=== PATIENT | female | born 1980 | race Caucasian/White ===

== ENCOUNTER 2020-12-10 13:08 | Emergency (ER) | payer SELFPAY ==
[2020-12-10] MEDS ORDERED: Metoprolol Tartrate 25 MG Tab PO STA (13:37)
--- NOTE | 2020-12-10 14:15 | EDM.PDOC ---
ED HPI GENERAL MEDICAL PROBLEM - General Chief Complaint: Chest Pain Stated Complaint: HIGH HEART RATE Time Seen by Provider: 12/10/20 13:35 Source of Information: Reports: Patient History Limitations: Reports: No Limitations - History of Present Illness INITIAL COMMENTS - FREE TEXT/NARRATIVE: Patient presented to the ED because of palpitations and chest pain. She apparently took a protein shake drink and didn't know that it contains significant amount of caffeine. She has a history of SVT and had an ablation 2 years ago. She is taking metoprolol succinate 25 mg po daily. She denies any nausea,vomiting, dyspnea but felt dizzy a while ago which has now resolved. Midsternal chest Pain Score (Numeric/FACES): 4 - Related Data Allergies Allergy/AdvReac Type Severity Reaction Status Date / Time codeine Allergy Airway Verified 12/10/20 13:29 Tightness erythromycin base Allergy Rash Verified 12/10/20 13:29 Penicillins Allergy Rash Verified 12/10/20 13:29 Sulfa (Sulfonamide Allergy Rash Verified 12/10/20 13:29 Antibiotics) Home Meds: Home Meds Metoprolol Succinate 50 mg PO DAILY #39 tab.er.24h 12/10/20 [Rx] Metoprolol Succinate [Toprol XL] 25 mg PO DAILY 12/10/20 [History] Past Medical History Cardiovascular History: Reports: Arrhythmia, Hypertension, Other (See Below) Other Cardiovascular History: hx SVT, hx pre-HTN Gastrointestinal History: Reports: None Genitourinary History: Reports: None [employer]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: Musculoskeletal History: Reports: Arthritis, Fracture Other Musculoskeletal History: hx fx tib fib fx L leg, R ankle fx Endocrine/Metabolic History: Reports: Obesity/BMI 30+, Other (See Below) Other Endocrine/Metabolic History: hx lymes disease - Infectious Disease History Infectious Disease History: Reports: None - Past Surgical History HEENT Surgical History: Reports: Naso-Sinus Surgery, Oral Surgery Cardiovascular Surgical History: Reports: Cardiac Ablation GI Surgical History: Reports: Cholecystectomy Female Surgical History: Reports: Section Other Female Surgeries/Procedures: CS x 2 Musculoskeletal Surgical History: Reports: ORIF Other Musculoskeletal Surgeries/Procedures:: R ankle Social & Family History - Family History Family Medical History: No Pertinent Family History - Tobacco Use Tobacco Use Status *Q: Former Tobacco User Used Tobacco, but Quit: Yes Month/Year Tobacco Last Used: 2013 - Caffeine Use Caffeine Use: Reports: None - Recreational Drug Use Recreational Drug Use: No ED ROS GENERAL - Review of Systems Review Of Systems: See Below Constitutional: Reports: No Symptoms HEENT: Reports: No Symptoms Respiratory: Reports: No Symptoms Cardiovascular: Reports: Chest Pain, Lightheadedness, Palpitations Endocrine: Reports: No Symptoms GI/Abdominal: Reports: No Symptoms : Reports: No Symptoms Musculoskeletal: Reports: No Symptoms Skin: Reports: No Symptoms Neurological: Reports: No Symptoms Psychiatric: Reports: No Symptoms ED EXAM, GENERAL - Physical Exam Exam: See Below Exam Limited By: No Limitations General Appearance: Alert, No Apparent Distress Eye Exam: Bilateral Eye: PERRL Ears: Normal External Exam, Normal Canal Nose: Normal Inspection, Normal Mucosa, No Blood Throat/Mouth: Normal Inspection, Normal Lips Head: Atraumatic, Normocephalic Neck: Normal Inspection, Supple, Non-Tender, Full Range of Motion Respiratory/Chest: No Respiratory Distress, Lungs Clear, Normal Breath Sounds Cardiovascular: Normal Peripheral Pulses, No Edema, No Gallop, No JVD, No Murmur, Tachycardia GI/Abdominal: Normal Bowel Sounds, Soft, Non-Tender, No Organomegaly, No Distention, No Abnormal Bruit, No Mass Back Exam: Normal Inspection, Full Range of Motion Extremities: Normal Inspection, Normal Range of Motion #1 Interpretation EKG Date: 12/10/20 Time: 13:18 Rhythm: NSR [place]: Normal P-Wave: Present QRS: Normal ST-T: Normal QT: Normal Comparison: NA - No Prior EKG (NSR) Course - Vital Signs Text/Narrative:: Labs/EKG result was reviewed and discussed with patient Metoprolol tartrate 25 mg PO x1 Last Recorded V/S: Last Vital Signs Temp 36.0 C L 12/10/20 13:30 Pulse 105 H 12/10/20 14:30 Resp 21 H 12/10/20 14:30 BP 149/91 H 12/10/20 14:30 Pulse Ox 96 12/10/20 14:30 - Orders/Labs/Meds Orders: Active Orders 24 hr Category Date Time Status EKG 12 Lead [EK] Routine Ther 12/10/20 13:38 Ordered Labs: Laboratory Tests 12/10/20 12/10/20 12/10/20 Range/Units 13:40 13:40 13:40 WBC 12.3 H (3.0-10.3) x10-3/uL RBC 4.65 (3.60-5.20) x10(6)uL Hgb 13.7 (11.4-15.5) g/dL Hct 40.6 (34.2-48.2) % MCV 87.2 (76.7-100.5) fL MCH 29.5 (23.9-33.9) pg MCHC 33.9 (31.9-34.8) g/dL RDW 13.2 (12.3-16.5) % Plt Count 401 (151-488) x10(3)uL MPV 8.2 (7.1-12.4) fL Neut % (Auto) 67.4 (30.8-76.2) % Lymph % (Auto) 24.9 (18.4-52.1) % Isabella % (Auto) 5.9 (4.4-15.7) % Eos % (Auto) 0.8 (0.6-8.1) % Baso % (Auto) 1.0 (0.2-1.5) % Neut # (Auto) 8.3 H (1.5-6.3) x10-3/uL Lymph # (Auto) 3.1 (1.0-4.4) x10-3/uL Isabella # (Auto) 0.7 (0.3-1.0) x10-3/uL Eos # (Auto) 0.1 (0.0-0.8) x10-3/uL Baso # (Auto) 0.1 (0.0-0.1) x10-3/uL Sodium 142 (135-145) mmol/L Potassium 3.8 (3.5-5.3) mmol/L Chloride 103 (100-110) mmol/L Carbon Dioxide 27 (21-32) mmol/L BUN 10 (7-18) mg/dL Creatinine 0.8 (0.55-1.02) mg/dL Est Cr Clr Drug Dosing 85.76 mL/min Estimated GFR (MDRD) > 60 (>60) BUN/Creatinine Ratio 12.5 (9-20) Glucose 107 (80-116) mg/dL Calcium 8.8 (8.6-10.2) mg/dL Total Bilirubin 0.9 (0.1-1.3) mg/dL AST 19 (5-25) IU/L ALT 31 (12-36) U/L Alkaline Phosphatase 55 L (56-112) IU/L Troponin I 4.5 (4.0-60.3) pg/mL Total Protein 7.5 (6.0-8.0) g/dL Albumin 3.9 (3.5-5.2) g/dL Globulin 3.6 g/dL Albumin/Globulin Ratio 1.1 Meds: Medications Discontinued Medications Generic Name Dose Route Start Last Admin Trade Name Freq PRN Reason Stop Dose Admin Metoprolol Tartrate 25 mg 12/10/20 13:37 12/10/20 13:50 Metoprolol Tartrate 25 Mg Tab PO 12/10/20 13:38 25 mg NOW STA Administration Departure - Departure Time of Disposition: 14:30 Disposition: Home, Self-Care 01 Condition: Good Clinical Impression: Palpitations, Chest pain Prescriptions: Metoprolol Succinate 50 mg PO DAILY #39 tab.er.24h Instructions: Nonspecific Chest Pain, Adult, [id number], Palpitations, [id number] Referrals: Miguel Florian DO [Primary Care Provider] - Forms: ED Department Discharge Additional Instructions: Please read discharge instructions on palpitations and chest pain Increase the dose of your metorprolol to 50 mg daily Record your heart rate and BP daily for 2 weeks and bring it to your next cardiology visit Sepsis Event Note (ED) - Evaluation Sepsis Screening Result: No Definite Risk - Focused Exam Vital Signs: Vital Signs Temp Pulse Pulse Resp BP BP Pulse Ox 12/10/20 14:30 105 H 21 H 149/91 H 96 12/10/20 14:15 98 21 H 140/118 H 100 12/10/20 14:00 93 20 136/94 H 100 12/10/20 13:50 91 126/78 12/10/20 13:45 95 18 126/78 99 12/10/20 13:30 36.0 C L 102 H 19 130/82 99 - My Orders Last 24 Hours: My Active Orders 12/10/20 13:38 EKG 12 Lead [EK] Routine - Assessment/Plan Last 24 Hours: My Active Orders 12/10/20 13:38 EKG 12 Lead [EK] Routine
== END 2020-12-10 14:40 | disposition home or self-care (01) ==
LOC: FB.ED 13:08
DX: R00.2 Palpitations (principal); R07.9 Chest pain, unspecified; I10 Essential (primary) hypertension; Z79.899 Other long term (current) drug therapy; Z87.891 Personal history of nicotine dependence; Z88.5 Allergy status to narcotic agent; Z88.1 Allergy status to other antibiotic agents; Z88.0 Allergy status to penicillin; Z88.2 Allergy status to sulfonamides
CPT/HCPCS: 36415; 80053; 84484; 85025; 93005; 99285; A9270

== ENCOUNTER 2021-07-05 18:15 | Emergency (ER) | payer SELFPAY ==
--- NOTE | 2021-07-05 19:11 | EDM.PDOC ---
ED HPI GENERAL MEDICAL PROBLEM - General Chief Complaint: General Stated Complaint: HIGHBLOOD PRESSURE Time Seen by Provider: 07/05/21 18:30 Source of Information: Reports: Patient - History of Present Illness INITIAL COMMENTS - FREE TEXT/NARRATIVE: 41-year-old lady came to the emergency department due to hypertension at home. She had been treated for hypertension as an outpatient but her doctor stopped metoprolol and losartan secondary to improved blood pressure control, weight loss. However, over the last several months she has gained a little bit of weight but also had a significant upper respiratory illness. She tested negative for Covid x2, her last negative test was 2 days ago. However, she has been tracking her blood pressure at home and has been very high. She denies chest pain, shortness of breath, fever, chills, cough, congestion, nausea, vomiting, diarrhea, change in bowel or bladder habits. He essentially came to the emergency department because she was concerned about her blood pressure and has no more blood pressure medication to take at home. Note that she did have 1 pill of metoprolol left at home. She took that pill and it seemed to help a little bit. - Related Data Allergies Allergy/AdvReac Type Severity Reaction Status Date / Time codeine Allergy Airway Verified 12/10/20 13:29 Tightness erythromycin base Allergy Rash Verified 12/10/20 13:29 Penicillins Allergy Rash Verified 12/10/20 13:29 Sulfa (Sulfonamide Allergy Rash Verified 12/10/20 13:29 Antibiotics) Home Meds: Home Meds Metoprolol Succinate 50 mg PO DAILY #39 tab.er.24h 12/10/20 [Rx] Metoprolol Succinate [Toprol XL] 25 mg PO DAILY 12/10/20 [History] Past Medical History Cardiovascular History: Reports: Arrhythmia, Hypertension, Other (See Below) Other Cardiovascular History: hx SVT, hx pre-HTN Gastrointestinal History: Reports: None Genitourinary History: Reports: None [employer] History: Reports: Other [employer] History: Musculoskeletal History: Reports: Arthritis, Fracture Other Musculoskeletal History: hx fx tib fib fx L leg, R ankle fx Endocrine/Metabolic History: Reports: Obesity/BMI 30+, Other (See Below) Other Endocrine/Metabolic History: hx lymes disease - Infectious Disease History Infectious Disease History: Reports: None - Past Surgical History HEENT Surgical History: Reports: Naso-Sinus Surgery, Oral Surgery Cardiovascular Surgical History: Reports: Cardiac Ablation GI Surgical History: Reports: Cholecystectomy Female Surgical History: Reports: Section Other Female Surgeries/Procedures: CS x 2 Musculoskeletal Surgical History: Reports: ORIF Other Musculoskeletal Surgeries/Procedures:: R ankle Social & Family History - Family History Family Medical History: No Pertinent Family History - Tobacco Use Tobacco Use Status *Q: Never Tobacco User - Caffeine Use Caffeine Use: Reports: None - Recreational Drug Use Recreational Drug Use: No ED ROS GENERAL - Review of Systems Review Of Systems: See Below Constitutional: Reports: No Symptoms HEENT: Reports: No Symptoms Respiratory: Reports: No Symptoms Cardiovascular: Reports: No Symptoms Endocrine: Reports: No Symptoms GI/Abdominal: Reports: No Symptoms : Reports: No Symptoms Musculoskeletal: Reports: No Symptoms Skin: Reports: No Symptoms Neurological: Reports: No Symptoms Psychiatric: Reports: No Symptoms Hematologic/Lymphatic: Reports: No Symptoms Immunologic: Reports: No Symptoms ED EXAM, GENERAL - Physical Exam Exam: See Below Exam Limited By: No Limitations General Appearance: Alert, WD/WN, No Apparent Distress Eye Exam: Bilateral Eye: EOMI Head: Atraumatic, Normocephalic Neck: Normal Inspection Respiratory/Chest: No Respiratory Distress, Lungs Clear Cardiovascular: Regular Rate, Rhythm, No Murmur Peripheral Pulses: 2+: Radial (L), Radial (R), Dorsalis Pedis (L), Dorsalis Pedis (R) GI/Abdominal: Normal Bowel Sounds, Soft, Non-Tender Back Exam: Normal Inspection Extremities: Normal Inspection Neurological: Alert, Oriented, Normal Cognition, Normal Gait Psychiatric: Normal Affect, Normal Mood Skin Exam: Warm, Dry, Intact Course - Vital Signs Text/Narrative:: Patient's blood pressure is within normal limits here in the emergency department patient is symptom-free at this time. Patient's metoprolol/home medication has been refilled through her [facility] chart. Patient will be discharged. Last Recorded V/S: Last Vital Signs Temp 36.4 C 07/05/21 18:20 Pulse 99 07/05/21 18:20 Resp 20 07/05/21 18:20 BP 150/94 H 07/05/21 18:20 Pulse Ox 98 07/05/21 18:20 Departure - Departure Time of Disposition: 19:09 Disposition: Home, Self-Care 01 Condition: Good Clinical Impression: Hypertension - Discharge Information *PRESCRIPTION DRUG MONITORING PROGRAM REVIEWED*: Not Applicable *COPY OF PRESCRIPTION DRUG MONITORING REPORT IN PATIENT AMILCAR: Not Applicable Instructions: Preventing Hypertension, Hypertension, Adult, [id number] Referrals: Miguel Florian DO [Primary Care Provider] - Additional Instructions: Patient's metoprolol has been refilled through her [facility] chart. Patient instructed to continue to take metoprolol as directed and to follow-up with her primary care physician. Sepsis Event Note (ED) - Evaluation Sepsis Screening Result: No Definite Risk - Focused Exam Vital Signs: Vital Signs Temp Pulse Resp BP Pulse Ox 07/05/21 18:20 36.4 C 99 20 150/94 H 98
== END 2021-07-05 19:42 | disposition home or self-care (01) ==
LOC: FB.ED 18:15
DX: I10 Essential (primary) hypertension (principal); E66.9 Obesity, unspecified; Z68.28 Body mass index [BMI] 28.0-28.9, adult; Z88.5 Allergy status to narcotic agent; Z88.0 Allergy status to penicillin; Z88.1 Allergy status to other antibiotic agents; Z88.2 Allergy status to sulfonamides
CPT/HCPCS: 99283

== ENCOUNTER 2021-12-23 00:19 | Emergency (ER) | payer SELFPAY ==
[2021-12-23] MEDS ORDERED: Sodium Chloride 0.9% 1,000 ML IV ONE (00:30)
[2021-12-23] MEDS ORDERED: Ondansetron 4 MG/2 ML SDV IVPUSH ONE (00:30)
[2021-12-23] MEDS ORDERED: Sodium Chloride 0.9% 10 ML Syringe FLUSH PRN (00:30)
[2021-12-23] MEDS ORDERED: Atropine/Diphenoxylate 0.025-2.5 MG Tab PO STA (00:49)
== END 2021-12-23 01:54 | disposition home or self-care (01) ==
LOC: FB.ED 00:19
DX: K52.9 Noninfective gastroenteritis and colitis, unspecified (principal); I10 Essential (primary) hypertension; E66.9 Obesity, unspecified; Z68.29 Body mass index [BMI] 29.0-29.9, adult; Z88.5 Allergy status to narcotic agent; Z88.0 Allergy status to penicillin; Z88.2 Allergy status to sulfonamides; Z88.1 Allergy status to other antibiotic agents
CPT/HCPCS: 36415; 80048; 85025; 96374; 99283; 99284-25; A9270-GY; J2405; J3490; J7030